=== PATIENT | female | born 1975 | race Caucasian/White ===

== ENCOUNTER → 2016-07-26 | Outpatient (CLI) | payer OTHER ==
[~2016-07-26] MED LIST: ALAVERT10 M1 PO; BENADRYL25 M1 PO; CIPROFLOXACIN500 MG PO; DIFLUCAN100 MG PO; FLOVENT 110 M110 MCG INH; LOTRISONE 0.05%1 CRE TP; MOTRIN800 MG PO; PROAIR HFA0.09 MG/AC IH; PROPANOLOL PO; SINGULAIR10 MG PO; VIBRAMYCIN100 MG PO; ZITHROMAX250 MG PO
[2016-07-26 08:28] LABS: CHOLESTEROL 218 mg/dL (<200); TRIGLYCERIDES 101 mg/dl (<150); VLDL CHOLESTEROL 20 mg/dL (6-40)
[2016-07-26 08:30] LABS: HDL CHOLESTEROL 46 mg/dl (40-60); LDL CHOLESTEROL 152 mg/dL (9-159)
== END | disposition home or self-care (01) ==
LOC: LAB 07:23
PROVIDERS: Family Medicine
DX: E78.5 Hyperlipidemia, unspecified (principal); E55.9 Vitamin D deficiency, unspecified